=== PATIENT | female | born 1975 | race Caucasian/White ===

== ENCOUNTER → 2016-09-18 | Outpatient (CLI) | payer BC ==
[~2016-09-18] MED LIST: CALC500T32 PO; DESO1TAB4 PO; HYDR-4246 PO; IBUP-2067 PO; IBUP200C62 PO; PREN1TAB53 PO
--- NOTE | 2016-09-18 13:19 | DI ---
EXAM: US GALLBLADDER LOCATION OF DICTATION: Still HISTORY: ITS.REASON: R10.11 Right upper quadrant pain COMPARISON: No prior studies available for comparison. Multiple real-time grayscale sonographic images were obtained of the abdomen with and without color flow. FINDINGS: Multiple real-time grayscale sonographic images were obtained of the abdomen with and without color flow. Hepatic parenchyma is homogeneous without evidence for focal mass. 14.87 cm. There is a shadowing stone demonstrated within the gallbladder neck measuring approximately 1.6 cm in diameter. There is no wall thickening, pericholecystic fluid, sonographic Lynne's sign or cholelithiasis. 0.26 cm. Both the intra and extrahepatic biliary system are of normal caliber with the common duct measuring 0.48 cm in diameter. Visualized portions of the head and body of the pancreas are unremarkable. The right kidney is present without collecting system dilatation. The right kidney measures 10.5 x 4.9 x 5.1 cm. IMPRESSION: 1. Prominent 1.6 cm stone demonstrated about the gallbladder neck. The wall thickness is within normal limits measuring 0.26 cm. The patient did not demonstrate a positive sonographic Lynne sign. 2. The liver and biliary ducts are within normal limits. .
== END ==
LOC: IMA 10:08
PROVIDERS: ATTEND Obstetrics & Gynecology
DX: K80.20 Calculus of gallbladder without cholecystitis without obstruction (principal); R10.11 Right upper quadrant pain

== ENCOUNTER → 2016-09-19 | Outpatient (CLI) | payer BC ==
[2016-09-19 14:05] LABS: BASOPHILS # (AUTO) 0.1 T/MM3 (0-0.2); BASOPHILS % (AUTO) 0.7 % (0-2); EOSINOPHILS # (AUTO) 0.2 T/MM3 (0-0.5); EOSINOPHILS % (AUTO) 2.9 % (0-4); HCT - HEMATOCRIT 41.9 % (36-46); HGB - HEMOGLOBIN 13.9 GM/DL (12-16); IMMATURE GRANULOCYTE # (AUTO) 0.01 T/MM3 (0.00-0.03); IMMATURE GRANULOCYTE % (AUTO) 0.1 % (0.0-0.5); LYMPHOCYTES % (AUTO) 35.6 % (23-45); MEAN CORPUSCULAR HGB 28.1 UUG (26-34); MEAN CORPUSCULAR HGB CONC(MCHC 33.2 GM/DL (31-37); MEAN CORPUSCULAR VOLUME 84.6 UM3 (80-100); MEAN PLATELET VOLUME 9.1 UM3 (9.4-12.4); MONOCYTES # (AUTO) 0.7 T/MM3 (0-0.8); MONOCYTES % (AUTO) 7.9 % (0-9.0); NEUTROPHILS #(AUTO)-ABSOLUTE 4.4 T/MM3 (1.8-7.7); NEUTROPHILS % (AUTO) 52.8 % (33-66); RED BLOOD COUNT 4.95 M/MM3 (4.00-5.20); WBC - WHITE BLOOD COUNT 8.4 T/MM3 (4.5-11.0)
[2016-09-19 14:14] LABS: ALBUMIN 4.2 G/DL (3.5-5.0); ALBUMIN/GLOBULIN RATIO 1.1 RATIO (1.1-2.2); ALKALINE PHOSPHATASE 152 U/L (38-126); ALT (SGPT) 62 U/L (9-52); ANION GAP 14 MEQ/L (5-15); AST (SGOT) 39 U/L (14-36); BUN/CREATININE RATIO 10 RATIO (6-26); CALCIUM 9.5 MG/DL (8.4-10.2); CHLORIDE 102 MEQ/L (98-107); CO2 - CARBON DIOXIDE 27 MEQ/L (22-30); CREATININE 1.1 MG/DL (0.7-1.2); GLOMERULAR FILTRATION RATE 55; GLUCOSE 101 MG/DL (65-110); POTASSIUM 4.2 MEQ/L (3.6-5); SODIUM 143 MEQ/L (134-144)
== END ==
LOC: LAB 13:47
PROVIDERS: ATTEND Surgery
DX: K80.20 Calculus of gallbladder without cholecystitis without obstruction (principal)
CPT/HCPCS: 36415; 80053; 85025

== ENCOUNTER 2016-09-20 11:59 | Day surgery (SDC) | payer BC ==
[2016-09-20] VITALS (20 sets, daily range): BP systolic 117–154; BP diastolic 63–89; PULSE 57–85; RESP 12–16; TEMP 97.1–98.4; O2SAT 93–99; Ht 165.1 cm; Wt 90.0 kg
[~2016-09-20] VITALS: Ht 165.1 cm; Wt 90.0 kg
[~2016-09-20 11:59] MED LIST changes: -CALC500T32 PO; +ERTAPENEM 1 G in NORMAL SALINE 100 ML IV ONE; -HYDR-4246 PO; -IBUP-2067 PO; +LIDOCAINE 1% (10mg/ml) 2ml SDV INJ ONE; +LR 1,000 ML IV SCH; -PREN1TAB53 PO
--- OUTSIDE RECORDS SUMMARY | 2016-09-20 12:02 | XMS REPORT ---
Author Author Rajshannen Nazia [facility] Address [address] [id number] Care Team Providers Care Tool Design Checker Name Role Phone Nazia Briceno Unavailable [phone] PROBLEMS Type Condition ICD9-CM Code QUV65-UI Code Onset Dates Condition Status SNOMED Code Problem PCOS (polycystic ovarian syndrome) E28.2 Active 91578385 Problem Dysmenorrhea N94.6 Active 271774943 Assessment Hirsutism L68.0 Jul, Active 737495016 Problem Hyperandrogenism E28.8 Active 460367223 Assessment PCOS (polycystic ovarian syndrome) E28.2 Jul, Active 72093882 ALLERGIES Substance Reaction Event Type Date Status N.K.D.A. Unknown Non Drug Allergy Jul, Unknown SOCIAL HISTORY No smoking Hx information available PLAN OF CARE VITAL SIGNS Height 66 in 2016-07-18 Weight 209.6 lbs 2016-07-18 Heart Rate 68 /min 2016-07-18 Respiratory Rate 16 /min 2016-07-18 BMI 33.83 kg/m2 2016-07-18 Blood pressure systolic 130 mm Hg 2016-07-18 Blood pressure diastolic 76 mm Hg 2016-07-18 MEDICATIONS Medication Instructions Dosage Frequency Start Date End Date Duration Status Desogestrel-Ethinyl Estradiol 0.15-30 MG-MCG Orally Once a day 1 tablet 24h Jul, 28 day(s) Active Spironolactone 100 MG Orally Two times daily 1 tablet Jul, 30 day(s) Active RESULTS No Results PROCEDURES Procedure Date Ordered Related Diagnosis Body Site Office Consultation Level 5 Jul 18, 2016 ASSAY OF SEX HORMONE GLOBUL Jul 18, 2016 ASSAY OF TOTAL TESTOSTERONE Jul 18, 2016 ASSAY THYROID STIM HORMONE Jul 18, 2016 LIPID PANEL SO Jul 18, 2016 ASSAY OF PROLACTIN Jul 18, 2016 DEHYDROEPIANDROSTERONE Jul 18, 2016 ASSAY OF TESTOSTERONE Jul 18, 2016 GLYCATED HEMOGLOBIN TEST SO Jul 18, 2016 IMMUNOASSAY, MARY LOU Jul 18, 2016 IMMUNIZATIONS No Known Immunizations
--- NOTE | 2016-09-20 12:53 | ANESPREOP ---
Anesthesia Record Date and Time DATE: 09/20/16 TIME: 12:49 Pre-Op Diagnosis Cholelithiasis Proposed Surgical Procedure GALLBLADDER NPO since: [place] Allergies: Coded Allergies: No Known Allergies (Verified , 09/20/16) Ht/Wt/BMI Height: 5 ' 5.00 " Weight: 90.000 kg BMI: 33.0 kg/m2 Vital Signs Date Time Temp Pulse Resp B/P Pulse Ox O2 Delivery O2 Flow Rate FiO2 09/20/16 12:24 16 09/20/16 12:17 98.4 68 154/89 99 Room Air Medications Inpatient Medications Current Medications Medications (Trade) Dose Ordered Sig/Leonor Start Time Stop Time Status Last Admin Dose Admin Lactated Ringer's (Lactated Ringers) 1,000 ml @ 30 mls/hr Q24H 09/20/16 07:00 09/20/16 12:41 30 MLS/HR Desogestrel-Ethinyl Estradiol (Apri 28 Day Tablet) 1 Each Tablet, 1 TAB PO DAILY , (Reported) Last Taken: on 09/19/16 0800 Ibuprofen (Ibuprofen) 200 Mg Capsule, 2 CAP PO Q4H PRN for PAIN, (Reported) Last Taken: on 09/19/16 0730 Currently on Beta Giovanna: No Medical/Surgical History Anesthesia PMH: Denies: *Diabetes, Anesthesia Reactions (NO AIRWAY ISSUES), Cancer, Glaucoma, Malignant Hyperthermia, Sleep Apnea, Thyroid Disease (RIGHT THYROID-GOITER REMOVED 2007) Smoking Status: Never smoker Use Chewing Tobacco?: No Second Hand Exposure: No Substance Use Type: does not use Alcohol Intake: other (rare) HX of Last Menstrual Period: SEPTEMBER 08 2016 Past Surgical History Orthopedic Surgeries: No Abdominal Surgeries: Yes - Section 01/08 Genitourinary Surgeries: No Cardiac Surgeries: No Endocrine Surgeries: Yes - GOITER REMOVED- RIGHT Reproductive Surgeries: Yes - X2 Neurological Surgeries: No Ear Surgeries: No Nose Surgeries: No Throat Surgeries: Yes - T&A Other Surgeries: Yes - GOITER REMOVED- RIGHT Anesthesia Adverse Reactions: FOUND none Family Hx of Anesthesia Advers: none Hx of Motion Sickness: No Pertinent Findings Test 09/20/16 12:19 Urine Test Negative (NEGATIVE) EKG Rhythm: Sinus Rhythm Physical Exam Respiratory: Lungs clear Cardiovascular: FOUND Regular rate, rhythm, FOUND No murmur Airway Assessment Mallampati Score: I TMD: 3 Fingerbreadths Neck Extension: Good Overall Assessment: No Airway Concerns ASA: 2 Plan Anesthesia Plan: GETA Discussion Discussed risks/options/alternatives of anesthesia and questions answered. Patient consents. Nursing pain assessment noted. Present: Spouse Attestation Statement Prior to the delivery of any anesthetic medication, I examined the patient, developed the plan, obtained the patient's consent and discussed the risk and benefits of the procedure with the patient/guardian. RUBY DELGADO PAPERHANGER SUPERVISOR Sep 20, 2016 12:53
[2016-09-20] MEDS ORDERED: BUPIVACAINE 0.25%/EPI 1:200,000 30ml SDV ONE (13:20)
[2016-09-20] MEDS ORDERED: IOHEXOL 300 MG/ML 50ml INJECTION ONE (13:20)
[2016-09-20] MEDS ORDERED: ROCURONIUM 50mg/5ml INJECTION IV ONE (13:49)
[2016-09-20] MEDS ORDERED: PROPOFOL 200mg 20 ML IV ONE (13:49)
[2016-09-20] MEDS ORDERED: DEXAMETHASONE 4mg/ml - 1ml INJECTION ONE (13:50)
[2016-09-20] MEDS ORDERED: LIDOCAINE (2%) 100 MG/5 ML PF SYRINGE IV ONE (13:50)
[2016-09-20] MEDS ORDERED: ONDANSETRON 4mg/2ml INJECTION ONE (13:50)
[2016-09-20] MEDS ORDERED: FENTANYL 250mcg/5ml INJECTION ONE (13:50)
[2016-09-20] MEDS ORDERED: LR 1,000 ML IV SCH (14:06)
[2016-09-20] MEDS ORDERED: IBUP-2067 PO (14:11)
[2016-09-20] MEDS ORDERED: HYDR-4246 PO (14:11)
[2016-09-20] MEDS ORDERED: METOCLOPRAMIDE 10mg/2ml INJECTION IV PRN (14:15)
[2016-09-20] MEDS ORDERED: IBUPROFEN 600 MG TABLET PO PRN (14:15)
[2016-09-20] MEDS ORDERED: HYDROCODONE/APAP 5 mg/325 mg TABLET PO PRN (14:15)
[2016-09-20] MEDS ORDERED: KETOROLAC 30mg/ml INJECTION IV PRN (14:15)
[2016-09-20] MEDS ORDERED: MORPHINE SULFATE 4 MG SYRINGE IV PRN (14:15)
[2016-09-20] MEDS ORDERED: ONDANSETRON 4mg/2ml INJECTION IV PRN (14:15)
[2016-09-20] MEDS ORDERED: SUGAMMADEX 200 MG/2 ML INJECTION IV ONE (14:48)
--- NOTE | 2016-09-20 15:02 | DI ---
Indication: ITS.REASON: LAP MARYLIN PROCEDURE: RF CHOLANGIOGRAM OPERATIVE: Comparison: Gallbladder ultrasound dated September 18, 2016 Findings: 2 fluoroscopic spot images are submitted from an intraoperative cholangiogram. Images demonstrate injection of contrast into the cystic duct with filling of the common duct and intrahepatic biliary tree. No discrete filling defects are identified. Contrast flows into the duodenum. Impression: Intraoperative fluoroscopy as above. Please refer to the dictated operative note for further details. Fluoroscopy time is 9 seconds. Fluoroscopy dose is 229.6 mRad. .
--- NOTE | 2016-09-20 15:05 | GSPOSTPROC ---
Immediate Operative Note DATE: 09/20/16 TIME: 15:05 Postop Diagnosis: symptomatic cholelithiasis Surgery Type: Laparoscopic Surgical Procedure: Cholecystectomy (with intraoperative cholangiogram) Surgeon: Alex Assisting Surgeon: Oscar Conti Anesthesia: Local, General ASA: 2 CHAD CONTI APRN Sep 20, 2016 15:05
[2016-09-20] MEDS ORDERED: HYDROMORPHONE 2mg/ml INJECTION IV PRN (15:30)
--- NOTE | 2016-09-20 15:40 | NUR ---
Admission Received to 134 from PACU s/p lap christel. Alert and oriented x3. VSS. Able to shift self to bed. 4 laprascopic incisions closed with dermabond are clean, dry and intact. States pain is a 4/10. Refusing any medication at the moment. Provided with crackers and ice chips per request. at bedside. Discharge criterion explained as well as room and routine.
--- NOTE | 2016-09-20 18:35 | NUR ---
Discharge Patient has met discharge criterion. Able to ambulate with stand by assist. Pain controlled with po meds. Tolerating food and fluids. VSS. Incisions dry and intact. Able to void. Discharge instructions reviewed with patient, including meds, activity, diet and follow-up appointments. Iv dc'd with catheter intact. Escorted to vehicle by RN and home with .
--- NOTE | 2016-09-20 20:50 | OPNOTEF ---
DATE OF SERVICE 09/20/2016 SURGEON Kvng Johnson MD PREOPERATIVE DIAGNOSIS Symptomatic cholelithiasis. POSTOPERATIVE DIAGNOSIS Symptomatic cholelithiasis. PROCEDURE Laparoscopic cholecystectomy with intraoperative cholangiogram. ANESTHESIA General endotracheal. EBL/FLUIDS Please see chart. BRIEF HISTORY/INDICATIONS Mrs. Mcginnis is a 41-year-old female whom I saw earlier this week as a result of her history for significant epigastric right upper quadrant abdominal pain and the finding of cholelithiasis upon ultrasonography. It was felt the patient was suffering from symptomatic cholelithiasis and it was therefore recommended she undergo surgical intervention. Patient presents today to undergo this procedure. For completeness please refer to notes included in the patient's chart. FINDINGS Upon laparoscopy the liver edge was smooth without nodularities. Small bowel, colon, peritoneum and the omentum that was visualized was within normal limits. Gallbladder itself was found to be somewhat thickened in nature but was without evidence for marked cheilitis. A laparoscopic cholecystectomy was able to be completed without incident. DESCRIPTION OF PROCEDURE After informed consent was obtained the patient was brought to the operative suite and placed on the table in supine fashion. The abdomen was prepped and draped in sterile fashion. Formal timeout was then completed. 0.25% Marcaine with epinephrine was injected just beneath the level of the umbilicus. A 2-cm curved incision was then made through the area of analgesia. Dissection was carried down to the deep subcuticular tissues to the underlying fascia. Fascia was then grasped with two Epifanio clamps and retracted anteriorly. A 1-cm incision was made between the two Epifanio clamps. Hemostat was then introduced into the fascial incision and gently spread. U-stitch was placed with 0-Vicryl. A 12-mm Alex port was then placed through the small incision and into the peritoneal cavity. Pneumoperitoneum was established to a patient pressure of 15 mmHg utilizing carbon dioxide. Three additional 5-mm ports were placed within the epigastric region, right mid abdomen and right lateral abdominal wall. Each port site was preinjected with 0.25% Marcaine with epinephrine placed under direct visualization. The abdominal cavity was explored via the laparoscope. Findings were as noted above. Next, the fundus of the gallbladder was grasped and retracted in a cephalad fashion. There were some adhesions between the omentum and the gallbladder indicative of prior inflammation. Omentum was able to be dissected away from the gallbladder without difficulty. Next, an additional grasping pean was placed upon the infundibulum of the gallbladder and retracted in a lateral and slightly caudad fashion to provide exposure to the triangle of Calot. Dissection was begun high upon the infundibulum of the gallbladder with use of electrocautery. Dissection was continued until the critical view of safety had been obtained and the only remaining structures coming forth from the infundibulum of the gallbladder were that of the cystic duct and cystic artery. The posterior aspect of the infundibulum was also dissected away from the underlying liver bed. As stated above, there was some mild inflammatory change present but marked acute cholecystitis was not present. A single Hemoclip was then placed upon the cystic duct adjacent to the infundibulum of the gallbladder. An additional Hemoclip was then placed upon the cystic artery adjacent to the infundibulum of the gallbladder. An additional Hemoclip was placed just proximally upon the cystic artery. Next, a small ductotomy was made within the cystic duct. The cholangiocatheter was placed through the ductotomy and a cholangiogram was obtained under fluoroscopy. Under fluoroscopy one could see a long cystic duct remnant before entering into the common bile duct. Additionally, there was good flow to the duodenum with appropriate distal taper of the common bile duct. Proximally, one could see the intrahepatic radicles, left and right hepatic duct and common hepatic. No filling defects were noted. After obtaining a normal cholangiogram the cholangiocatheter was removed. Two Hemoclips were placed proximally upon the cystic duct in relation to the prior ductotomy. The cystic duct and cystic artery were then divided between the two clips. The gallbladder was dissected off the liver bed fossa with use of electrocautery. The gallbladder was placed in a laparoscopic retrieval bag and removed via the infraumbilical port site. Irrigation was performed and all irrigant was suctioned until clear. The gallbladder fossa was hemostatic in nature. The previously placed Hemoclips remained to be intact. Ports were removed under direct visualization. Pneumoperitoneum was released. The previously placed U-stitch was then secured, imbricating the fascia at the infraumbilical port site. All skin incisions were closed in a subcuticular fashion with 4-0 Monocryl. Dermabond was placed overlying the incisions. Patient is in the process of awakening from her anesthetic and will be sent back to the recovery room once deemed in stable condition. NAYAN
== END 2016-09-20 18:35 | disposition home or self-care (01) ==
LOC: SCU 11:59 → SRG 12:00 → SCU 18:35
PROVIDERS: ATTEND Surgery
DX: K80.20 Calculus of gallbladder without cholecystitis without obstruction (principal); K82.8 Other specified diseases of gallbladder; Z79.1 Long term (current) use of non-steroidal anti-inflammatories (NSAID)
CPT/HCPCS: 81025